=== PATIENT | female | born 1955 | race Caucasian/White ===

== ENCOUNTER 2024-08-11 08:28 | Day surgery (SDC) | payer MEDICARE ==
[2024-08-10 10:00] VITALS: BMI 32.8
[2024-08-11] MEDS ORDERED: Etomidate 40 MG (20 mL) VIAL ONE (11:41)
[2024-08-11] MEDS ORDERED: SUCCINYLCHOLINE/SOD CL,ISO/PF 200 MG/10 ML SYRINGE FS ONE (11:52)
[2024-08-11] MEDS ORDERED: ePHEDrine Sulfate 50 MG/10 ML VIAL ONE (11:52)
[2024-08-11] MEDS ORDERED: PHENYLEPHRINE-NS 100 MCG/ML 10 ML SYRINGE ONE (11:52)
[2024-08-11] MEDS ORDERED: Dexamethasone 20 MG/5 ML VIAL ONE (11:52)
[2024-08-11] MEDS ORDERED: fentaNYL PF 100 MCG/2 ML SYRINGE ONE (12:15)
[2024-08-11] MEDS ORDERED: Ondansetron PF 4 MG/2 ML Vial ONE (13:06)
== END 2024-08-11 15:00 | disposition home or self-care (01) ==
LOC: SDC 08:28
PROVIDERS: ATTEND Internal Medicine Gastroenterology
PROC: 0D958ZX Drainage of Esophagus, Via Natural or Artificial Opening Endoscopic, Diagnostic (ICD-10-PCS; principal; 2024-08-11)
PROC: 0DBP8ZZ Excision of Rectum, Via Natural or Artificial Opening Endoscopic (ICD-10-PCS; 2024-08-11)
DX: Z12.11 Encounter for screening for malignant neoplasm of colon (principal); R19.5 Other fecal abnormalities; D12.8 Benign neoplasm of rectum; K21.00 Gastro-esophageal reflux disease with esophagitis, without bleeding; K44.9 Diaphragmatic hernia without obstruction or gangrene; K64.8 Other hemorrhoids; K57.30 Diverticulosis of large intestine without perforation or abscess without bleeding
CPT/HCPCS: 43239; 45385; J1100; J2405; 88305; C1889

== ENCOUNTER 2024-08-25 09:00 | Outpatient (CLI) | payer MEDICARE | END 2024-08-25 09:01 | disposition home or self-care (01) | LOC: CT 09:00 | PROVIDERS: ATTEND Orthopaedic Surgery | DX: M17.11 Unilateral primary osteoarthritis, right knee (principal) ==

== ENCOUNTER 2024-08-30 09:29 | Outpatient (CLI) | payer MEDICARE ==
[2024-08-30 10:45] LABS: #Basophils 0.04 10x3/uL (0.0-0.2); %Basophils 0.6 % (0.0-1.0); %Eosinophils 2.3 % (0.0-10.0); %Lymphocytes 39.9 % (21.0-51.0); %Monocytes 5.6 % (0.0-10.0); %Neutrophils 51.5 % (42.0-75.0); Hematocrit 39.7 % (36.0-47.0); Hemoglobin 12.8 g/dL (12.0-16.0); Mean Corpuscular HGB CONC 32.2 g/dL (32.0-36.0); Mean Corpuscular Hemoglobin 30.2 pg (27.0-31.0); Mean Corpuscular Volume 93.6 fL (78.0-98.0); Mean Platelet Volume 9.4 fL (7.4-10.4); Platelet Count 270 10x3/uL (130-400); RBC Distribution Width 13.8 % (11.5-14.5); Red Blood Cell (RBC) Count 4.24 mill/uL (4.20-5.40)
[2024-08-30 11:04] LABS: Anion Gap 12 mmol/L (10-20); BUN (Urea Nitrogen) 14 mg/dL (9.8-20.1); Calc. Creatinine Clearance 0 mL/min (70-130); Calcium 9.2 mg/dL (7.8-10.44); Carbon Dioxide 27 mmol/L (23-31); Chloride 105 mmol/L (98-107); Estimated GFR 87; Glucose 94 mg/dL (80-115); Potassium 3.9 mmol/L (3.5-5.1); Sodium 140 mmol/L (136-145)
[2024-08-30 11:05] LABS: PTT 36.7 sec (22.9-36.1)
== END 2024-08-30 09:30 | disposition home or self-care (01) ==
LOC: LABBT 09:29
PROVIDERS: ATTEND Orthopaedic Surgery
DX: Z01.818 Encounter for other preprocedural examination (principal); M17.11 Unilateral primary osteoarthritis, right knee
CPT/HCPCS: 80048; 85025; 85610; 85730; 87081; 93005; 93010